=== PATIENT | male | born 1980 | race Caucasian/White ===

== ENCOUNTER 2017-05-24 21:23 | Inpatient (IN) ==
--- NOTE | 2017-05-24 22:04 | Emergency Department Note ---
Disposition Clinical Impression: Upper GI bleed Acute alcohol intoxication Qualifiers: Complication of substance-induced condition: uncomplicated Qualified Code(s): F10.929 - Alcohol use, unspecified with intoxication, unspecified Disposition: Admitted As Inpatient Condition: Good Time of Disposition: 22:12 General Adult HPI - General Chief complaint: ED Nausea/Vomiting/Diarrhea Stated complaint: vomiting blood Time Seen by Provider: 05/24/17 21:24 Source: patient, EMS Limitations: no limitations Nursing Notes Reviewed: Yes Vital Signs Reviewed: Yes - History of Present Illness HPI Narrative: 37-year-old male presenting to the emergency department with chief complaint of bloody emesis. Patient was transferred from the OR after disclosing a 4 day history of eye emesis 3 per day. Patient's hemoglobin stable. Patient has a history of alcoholic gastritis. Patient actively drinking daily. Alcohol level at OR was 351. CT of the abdomen and pelvis was completed at the OR as well which was within normal limits. Patient states he has diffuse abdominal tenderness but denies any other symptoms or complaints at this time. CBC completed at the OR white blood cell count 4.4, hemoglobin 15.4, hematocrit 42.3. CMP showed ethanol level of 351, AST 32, a LT 36, alkaline phosphatase 73 , calcium 8.2, creatinine 0.83, GFR greater than 60. Pain Scale: 9 - Related Data Home Medications Medication Instructions Recorded Confirmed Acamprosate Calcium 666 mg PO TID 05/24/17 05/24/17 Ergocalciferol (VITAMIN D2) 50,000 unit PO QWEEK 05/24/17 05/24/17 [Vitamin D2] Folic Acid 2 mg PO DAILY 05/24/17 05/24/17 Gabapentin [Neurontin] 300 mg PO HS 05/24/17 05/24/17 Mirtazapine [Remeron] 30 mg PO HS 05/24/17 05/24/17 Multivitamin [Multi-Day Vitamins] 1 each PO DAILY 05/24/17 05/24/17 Pantoprazole Sodium [Protonix] 20 mg PO BID 05/24/17 05/24/17 Potassium Chloride [K-Tab ER] 20 meq PO DAILY 05/24/17 05/24/17 Sertraline [Zoloft] 200 mg PO DAILY 05/24/17 05/24/17 Previous Rx's Medication Instructions Recorded Thiamine (B-1) [Vitamin B-1] 100 mg PO DAILY #30 tablet 09/16/15 Nicotine Patch [Nicoderm] 21 mg TD DAILY patch.td24 05/25/17 Allergies Allergy/AdvReac Type Severity Reaction Status Date / Time Sulfa (Sulfonamide Allergy Anaphylaxis Verified 09/09/16 21:11 Antibiotics) All systems ED: reviewed and negative except as stated. Constitutional: Denies: fever, chills, weakness Eyes: Reports: as per HPI ENT ED: Reports: as per HPI Cardiovascular: Denies: chest pain, palpitations, dyspnea on exertion Respiratory: Denies: cough, dyspnea, wheezes Gastrointestinal: Reports: abdominal pain, nausea, vomiting, hematemesis. Denies: diarrhea, constipation Genitourinary: Reports: as per HPI Musculoskeletal: Reports: as per HPI Integumentary: Reports: as per HPI Neurological: Reports: as per HPI Psychiatric: Reports: as per HPI Endocrine: Reports: as per HPI Hematological/Lymphatic: Reports: as per HPI Allergic/Immunologic: Reports: as per HPI Past Medical History - Past Medical History Attestation: Yes The following information was validated with the patient. Medical history: Reports: other Surgical history: Reports: orthopedic, other, other Psychiatric history: Reports: anxiety, depression, PTSD - Social History Smoking Status: Current every day smoker Smokeless Tobacco Status: Yes Alcohol use: Reports: heavy, recent Drug use: Reports: none Physical Exam - General Limitations: no limitations General appearance: alert, appears intoxicated - Head Head exam: atraumatic, normocephalic, normal inspection - Chest Chest inspection: Present: normal inspection, symmetric chest wall rise. Absent : tenderness - Respiratory Respiratory exam: Present: normal lung sounds bilaterally. Absent: respiratory distress, wheezes - Cardiovascular Cardiovascular exam: Present: regular rate, normal rhythm, normal heart sounds - Abdominal Exam Abdominal exam: Present: soft, tenderness. Absent: distention, guarding, rebound - Extremities Exam Extremities exam: Present: normal inspection, full ROM - Neurological Exam Neurological exam: Present: alert, oriented X3 - Skin Skin exam: Present: warm, intact Course Course Narrative: 37-year-old male presenting to emergency Department with chief complaint of bloody emesis for the past 4 days. Patient's hemoglobin stable at the OR. Alcohol level elevated at 351. We will admit the patient for upper GI bleed. Spoke with Dr. Mckeon who agrees to see the patient in the morning. Signed the patient out to the hospitalist Dr. Henderson Vital Signs Temperature 98.2 F 05/24/17 21:24 Pulse Rate 88 05/24/17 21:24 Respiratory Rate 18 05/24/17 21:24 Blood Pressure 140/100 05/24/17 21:24 O2 Sat by Pulse Oximetry 95 05/24/17 21:24 Temperature 98.8 F 05/25/17 14:51 Pulse Rate 91 05/25/17 14:51 Respiratory Rate 16 05/25/17 14:51 Blood Pressure 134/86 05/25/17 14:51 O2 Sat by Pulse Oximetry 95 05/25/17 14:51 Oxygen Delivery Oxygen Delivery Room Air Medical Decision Making - Lab Data Result diagrams: 05/25/17 11:28 05/25/17 05:34 Lab Results 05/24/17 05/24/17 Range/Units 22:09 22:09 Lipase 43 (8-78) Units/L Blood Type A POSITIVE Antibody Screen NEGATIVE Attestation Statement - Attestation Attestation: I, Jeovany Thomas, examined this patient and my medical decision-making was reviewed with the MEDICAL ASSISTANT FLOAT/PA/Advanced Practice Nurse/Resident Physician. I agree with the documented findings, disposition and treatment plan as described except to the extent set forth below. 37-year-old male presents to the emergency Department with concerns of hematemesis. He is being evaluated in the OR for EtOH abuse and behavioral health issues. They sent him to the emergency department for medical clearance secondary to a history of hematemesis and history of EtOH gastritis. Patient has tenderness to palpation of the epigastrium. His EtOH level was 351 at 3: 00. His lipase level was 370 with an upper limit of normal at the OR at 3 of 320. Hemoglobin is 15.4 and hematocrit 42. Patient states he continues to drink daily. CT of the abdomen and pelvis was negative for acute surgical pathology. Patient will be admitted to the hospital for further care and evaluation of his epigastric pain and hematemesis.
[2017-05-24] MEDS ORDERED: Naloxone 0.4 MG/ML INJ IVP PRN (22:45)
[2017-05-24] MEDS ORDERED: 0.9 % Sodium Chloride 1,000 ML IVC SCH (22:45)
[2017-05-24] MEDS ORDERED: *HR* LORazepam 2 MG/ML VIAL IVP PRN ×3 (22:49)
[2017-05-24] MEDS ORDERED: Mirtazapine 15 MG TABLET PO SCH (23:00)
[2017-05-24] MEDS ORDERED: Gabapentin 300 MG CAPSULE PO SCH (23:00)
--- NOTE | 2017-05-24 23:04 | Internal Med History&Physical ---
<Melissa Cannon M - Last Filed: 05/24/17 23:15> Date of Encounter: 05/24/17 Time of Encounter: 23:02 Assessment and Plan (1) Upper GI bleed Current visit: Yes Status: Acute Patient presents with reports of vomiting blood several times a day for the past 2-3 days. He has a history of previous hospitalization for similar and on those occasions was found to have alcoholic gastritis. Today patient has left sided abdominal pain and tenderness. CT of abdomen and pelvis at the [facility] showed no definitive evidence of pancreatitis, gastritis or duodenitis, and incidentally noted hepatomegaly Dr. Klein was consulted and plans EGD tomorrow. NPO Protonix IVP BID CHeck H/H Q6hr (2) Alcohol withdrawal Current visit: Yes Status: Acute Patient drinks 1L of vodka daily. Serum ETOH today of 351. He is here with hematemasis and abdominal pain. [facility] protocol seizure precautions multivitamin hydration social work consult Qualifiers: Complication of substance-induced condition: uncomplicated Qualified Code(s ): F10.230 - Alcohol dependence with withdrawal, uncomplicated (3) PTSD (post-traumatic stress disorder) Current visit: Yes Status: Acute Continue home medications. (4) Smoking Current visit: Yes Status: Chronic smoking cessation education and nicotine patch ordered. (5) DVT prophylaxis Current visit: Yes Status: Acute sequential compression devices pharmacologic prophylaxis is contraindicated in GI bleed. Internal Medicine - H&P: HPI Chief complaint: vomiting blood Admitted From: Emergency Dept History of present illness: Mr. Montanez is a 37 year old male with anxiety, depression, PTSD, and alcoholism was sent to the ED from the [facility] with reports of vomiting blood. Patient reports he has been vomiting blood 2-3 times a day for the last 3 days. He reports it is bright red and all blood. He also reports abdominal pain and tenderness. He reports he drinks 1 liter of vodka daily. He denies any diarrhea , black or bloody stools. He denies any lightheadedness, chest pain, shortness of breath, palpitations. Evaluation at the [facility] revealed serum alcohol level of 351. Hgb was 15.4 and Hct was 42.3. Urine drug screen was negative. Lipase was 370, but recheck here was 43. CT of the abdomen and pelvis showed no devinitive evidence of pancreatitis, gastritis or duodenitis and incidentally noted hepatomegaly. On exam, patient appears intoxicated, he is alert and oriented, and in no distress. Lungs are clear bilaterally and heart has regular rate and rhythm. Abdomen is diffusely tender to palpation, more so on the left than right. Past Med Surg Social Fam HX - Past Medical History Medical history: other Psychiatric history: anxiety, depression, PTSD - Past Surgical History Surgical History: orthopedic, other, other - Social History Smoking Status: Current every day smoker Smokeless Tobacco Status: Yes Alcohol use: heavy, recent Drug use: none - Family History Mother Adopted: No Family Member Ethnicity: Non- Living Status: Still Living Internal Medicine - H&P: Meds Thiamine (B-1) [Vitamin B-1] 100 mg PO DAILY #30 tablet 09/16/15 [Rx] Acamprosate Calcium 666 mg PO TID 05/24/17 [History] Diclofenac Sodium [Voltaren] 4 gm TP BID PRN 05/24/17 [History] Ergocalciferol (VITAMIN D2) [Vitamin D2] 50,000 unit PO QWEEK 05/24/17 [History] Folic Acid 2 mg PO DAILY 05/24/17 [History] Gabapentin [Neurontin] 300 mg PO HS 05/24/17 [History] Mirtazapine [Remeron] 30 mg PO HS 05/24/17 [History] Multivitamin [Multi-Day Vitamins] 1 each PO DAILY 05/24/17 [History] Pantoprazole Sodium [Protonix] 20 mg PO BID 05/24/17 [History] Potassium Chloride [K-Tab ER] 20 meq PO DAILY 05/24/17 [History] Sertraline [Zoloft] 200 mg PO DAILY 05/24/17 [History] 3 Allergy/AdvReac Type Severity Reaction Status Date / Time Sulfa (Sulfonamide Allergy Anaphylaxis Verified 09/09/16 21:11 Antibiotics) All Systems PM: A 10-system review of systems was performed and is negative for pertinent findings except as documented above in the HPI. - Constitutional Constitutional: anorexia, no chills, no fever(s), no night sweats - EENT Eyes: no change in vision, no discharge, no pain, no photophobia Ears: no ear discharge, no ear pain, no tinnitus Nose, mouth and throat: no dysphagia, no nasal discharge, no neck pain, no sore throat - Cardiovascular Cardiovascular ROS IM: no chest pain, no diaphoresis, no dyspnea, no lightheadedness, no palpitations, no syncope - Respiratory Respiratory: no cough, no dyspnea, no wheezing, no excessive phlegm production - Gastrointestinal Gastrointestinal: abdominal pain, hematemesis, nausea, vomiting, no diarrhea, no hematochezia, no melena - Musculoskeletal Musculoskeletal ROS IM: no numbness, no tingling - Integumentary Integumentary IM: no rash, no unusual bruising - Neurological Neurological ROS: no confusion, no convulsions, no focal weakness, no numbness, no tingling, no tremor(s) - Hematologic/Lymphatic Hematologic/Lymphatic: no easy bruising - Constitutional Vitals: Temp Pulse Resp BP Pulse Ox 98.2 F 88 18 140/100 97 05/24/17 21:24 05/24/17 21:24 05/24/17 21:24 05/24/17 21:24 05/24/17 21:34 General appearance: Present: A&O X 3, pleasant, no acute distress - Head Head exam: Present: atraumatic, normocephalic - Eye Eye exam: Present: conjuntiva pink, sclera anicteric Additional comments: pupils are round and reactive to light and accomodation, however left pupil greater in size than right. - Neck Neck exam general surgery: Present: supple, trachea midline. Absent: lymphadenopathy - Respiratory Respiratory exam: Present: CTAB. Absent: accessory muscle use, rales, rhonchi, wheezes - Cardiovascular Cardiovascular exam: Present: RRR, +S1, +S2. Absent: diastolic murmur, gallop, rubs, systolic murmur - GI/Abdominal GI/Abdominal exam: Present: normal bowel sounds, soft, tenderness (diffusely tender, moreso on left than right.), no peritoneal signs. Absent: distended - Extremities Exam Extremities exam: Present: warm, radial pulses palpable and symmetrical. Absent : calf tenderness, cyanotic, pedal edema - Neurological Exam Neurological exam: Present: CN II-XII intact, oriented X3, no focal deficits. Absent: pronater drift, facial droop, speech deficit - Skin Skin exam: Present: dry, intact Internal Med - H&P Results - Labs CBC & Chem 7: 05/24/17 23:04 <Thallapaneni,Rambabu - Last Filed: 05/25/17 03:50> Date of Encounter: 05/25/17 Internal Medicine - H&P: HPI History of present illness: Mr. Montanez is a 37 year old male All Systems PM: A 10-system review of systems was performed and is negative for pertinent findings except as documented above in the HPI. - Constitutional Vitals: Temp Pulse Resp BP Pulse Ox 98.4 F 73 18 158/87 95 05/25/17 00:10 05/25/17 00:10 05/25/17 00:10 05/25/17 00:10 05/25/17 00:10 Internal Med - H&P Results - Labs CBC & Chem 7: 05/24/17 23:04 05/24/17 23:04 Labs: Short CBC 05/24/17 Range/Units 23:04 WBC 4.1 L (4.3-11.1) K/mcL Hgb 13.8 (12.9-16.9) g/dL Hct 39.3 (37.5-50.1) % Plt Count 128 L (140-400) K/mcL Neutrophils # 1.4 L (1.6-8.9) K/mcL BMP 05/24/17 23:04 Sodium 142 Potassium 3.7 Chloride 103 Carbon Dioxide 25 BUN 6 L Creatinine 0.74 Glucose 86 Calcium 8.8 Liver Function 05/24/17 Range/Units 23:04 Total Bilirubin 0.8 (0.2-1.2) mg/dL AST 31 (5-34) Units/L ALT 22 (0-55) Units/L Alkaline Phosphatase 65 (38-126) Units/L Albumin 4.1 (3.5-5.0) g/dL - Attending Attestation I have personally performed a face to face evaluation on this patient and I discussed the assessment and plan with the nurse practitioner. I have reviewed and agree with the documented care plan. History and Exam by me shows: Mr. Montanez is a 37 year old male with anxiety, depression, PTSD, and alcoholism was sent to the ED from the [facility] with reports of vomiting blood. Patient reports he has been vomiting blood 2-3 times a day for the last 3 days. He reports it is bright red and all blood. He also reports abdominal pain and tenderness. He reports he drinks 1 liter of vodka daily. He denies any diarrhea , black or bloody stools. He denies any lightheadedness, chest pain, shortness of breath, palpitations. Evaluation at the [facility] revealed serum alcohol level of 351. Hgb was 15.4 and Hct was 42.3. Urine drug screen was negative. Lipase was 370, but recheck here was 43. CT of the abdomen and pelvis showed no devinitive evidence of pancreatitis, gastritis or duodenitis and incidentally noted hepatomegaly. On exam, patient appears intoxicated, he is alert and oriented, and in no distress Gen: A, A, O x3 Chest: CTA, No wheezing no crackles Heart : S1 S2 + RRR No murmurs Abd: Soft, moderate discomfort in RUQ and prei umbelical region a/p 1. Acute upper GI bleed NPO PPI IV BID GI consulted 2. Acute alcohol intoxication on [facility] protocol counseled to quit
[2017-05-24 23:11] LABS: Basophils % 0.5 %; Hematocrit 39.3 % (37.5-50.1); Hemoglobin 13.8 g/dL (12.9-16.9); Lymphocytes # 2.4 K/mcL (0.6-4.6); Lymphocytes % 57.2 %; Mean Corpuscular HGB Conc 35.1 g/dL (31.6-35.5); Mean Corpuscular Hemoglobin 34.9 pg (28.0-33.3); Mean Corpuscular Volume 99.5 fL (83.0-100.0); Mean Platelet Volume 11.1 fL (9.4-12.4); Monocytes # 0.3 K/mcL (0.0-1.3); Monocytes % 8.2 %; Neutrophils # 1.4 K/mcL (1.6-8.9); Platelet Count 128 K/mcL (140-400); Red Blood Count 3.95 M/mcL (4.19-5.50); Red Cell Distribution Width 12.4 % (11.5-14.5); Segmented Neutrophils % 33.1 %
[2017-05-24 23:27] LABS: Alanine Aminotransferase 22 Units/L (0-55); Albumin 4.1 g/dL (3.5-5.0); Albumin/Globulin Ratio 1.5 (1.1-2.2); Alkaline Phosphatase 65 Units/L (38-126); Aspartate Amino Transferase 31 Units/L (5-34); BUN/Creatinine Ratio 8 (6-26); Bilirubin,Total 0.8 mg/dL (0.2-1.2); Blood Urea Nitrogen 6 mg/dL (8-26); Calcium 8.8 mg/dL (8.6-10.8); Carbon Dioxide 25 mEq/L (19-29); Chloride 103 mEq/L (98-109); Globulin 2.8 g/dL (2.4-3.5); Glucose 86 mg/dL (70-99); Osmolality,Calculated 291 (280-300); Potassium 3.7 mEq/L (3.5-4.5); Sodium 142 mEq/L (136-145); Total Protein 6.9 g/dL (6.0-8.3); eGFR For African Americans > 60 (> 60); eGFR For Non-African Americans > 60 (> 60)
[2017-05-25] MEDS ORDERED: Thiamine (B-1) 100 MG, Folic Acid 1 MG, MVI, adult with vitamin K 10 ML in 0.9 % Sodi... IVPB SCH ×2 (01:00→18:00)
[2017-05-25] MEDS ORDERED: *HR* Morphine 2 MG/ML SYRINGE IVP PRN (01:11)
[2017-05-25] MEDS: Nicotine 21 MG PATCH.TD24 TD SCH ×2 (01:19→09:04)
[2017-05-25] MEDS: Ondansetron 4 MG/2 ML VIAL IVP PRN ×2 (01:20→12:06)
[2017-05-25 05:55] LABS: Basophils % 0.8 %; Eosinophils # 0.1 K/mcL (0.0-0.6); Eosinophils % 1.8 %; Hemoglobin 13.6 g/dL (12.9-16.9); Immature Granulocytes % 0.3 % (0-4); Lymphocytes # 1.9 K/mcL (0.6-4.6); Lymphocytes % 48.2 %; Mean Corpuscular HGB Conc 34.9 g/dL (31.6-35.5); Mean Corpuscular Hemoglobin 35.1 pg (28.0-33.3); Mean Corpuscular Volume 100.8 fL (83.0-100.0); Mean Platelet Volume 10.1 fL (9.4-12.4); Monocytes # 0.3 K/mcL (0.0-1.3); Neutrophils # 1.6 K/mcL (1.6-8.9); Platelet Count 130 K/mcL (140-400); Red Blood Count 3.87 M/mcL (4.19-5.50); Red Cell Distribution Width 12.4 % (11.5-14.5); Segmented Neutrophils % 40.9 %
[2017-05-25 06:01] LABS: Prothrombin Time 10.7 Seconds (9.4-12.1)
[2017-05-25 06:03] LABS: Activated Partial Thrombo Time 30.8 Seconds (26.0-36.0)
[2017-05-25 06:04] LABS: BUN/Creatinine Ratio 10 (6-26); Blood Urea Nitrogen 7 mg/dL (8-26); Calcium 8.7 mg/dL (8.6-10.8); Carbon Dioxide 25 mEq/L (19-29); Chloride 104 mEq/L (98-109); Glucose 79 mg/dL (70-99); Osmolality,Calculated 291 (280-300); Potassium 3.3 mEq/L (3.5-4.5); Sodium 142 mEq/L (136-145); eGFR For African Americans > 60 (> 60); eGFR For Non-African Americans > 60 (> 60)
[2017-05-25] MEDS ORDERED: 0.9 % Sodium Chloride 1,000 ML IVC SCH (07:00)
--- NOTE | 2017-05-25 08:35 | Internal Med Progress Note ---
Date of Encounter: 05/25/17 Time of Encounter: 08:34 - Assessment and plan (1) PTSD (post-traumatic stress disorder) Current Visit: Yes Status: Acute (2) Smoking Current Visit: Yes Status: Chronic (3) Gastritis determined by endoscopy Current Visit: No Status: Acute (4) Upper GI bleed Current Visit: Yes Status: Acute (5) Acute alcohol intoxication Current Visit: Yes Status: Acute Qualifiers: Complication of substance-induced condition: uncomplicated Qualified Code(s ): F10.929 - Alcohol use, unspecified with intoxication, unspecified (6) DVT prophylaxis Current Visit: Yes Status: Acute - Constitutional Vitals: Temp Pulse Resp BP Pulse Ox 97.8 F 87 16 126/83 95 05/25/17 06:49 05/25/17 06:49 05/25/17 06:49 05/25/17 06:49 05/25/17 06:49 General appearance: Present: A&O X 3, pleasant, no acute distress Internal Medicine: Result - Labs CBC & Chem 7: 05/25/17 05:34 05/25/17 05:34 Labs: Short CBC 05/24/17 05/25/17 Range/Units 23:04 05:34 WBC 4.1 L 4.0 L (4.3-11.1) K/mcL Hgb 13.8 13.6 (12.9-16.9) g/dL Hct 39.3 39.0 (37.5-50.1) % Plt Count 128 L 130 L (140-400) K/mcL Neutrophils # 1.4 L 1.6 (1.6-8.9) K/mcL BMP 05/24/17 05/25/17 23:04 05:34 Sodium 142 142 Potassium 3.7 3.3 L Chloride 103 104 Carbon Dioxide 25 25 BUN 6 L 7 L Creatinine 0.74 0.69 L Glucose 86 79 Calcium 8.8 8.7 Liver Function 05/24/17 Range/Units 23:04 Total Bilirubin 0.8 (0.2-1.2) mg/dL AST 31 (5-34) Units/L ALT 22 (0-55) Units/L Alkaline Phosphatase 65 (38-126) Units/L Albumin 4.1 (3.5-5.0) g/dL - ABG Interpretation ABG results: PT/INR, D-dimer PT 10.7 Seconds (9.4-12.1) 05/25/17 05:34 - VTE Documentation of Mechanical Device: Intermittent pneumatic compression device Consult Discharge Plan - Plan [facility]errals: [facility] [Primary Care Provider[facility] -
[2017-05-25] MEDS ORDERED: Folic Acid 1 MG TABLET PO SCH (09:00)
[2017-05-25] MEDS ORDERED: Thiamine (B-1) 100 MG TABLET PO SCH (09:00)
[2017-05-25] MEDS ORDERED: Potassium Chloride 40 MEQ, Lidocaine 1% 2 ML in D5% in Water 500 ML IVPB ONE (09:57)
--- NOTE | 2017-05-25 10:37 | Gastroenterology Consult Note ---
<Randi Jarrett - Last Filed: 05/25/17 13:12> Date of Encounter: 05/25/17 Time of Encounter: 10:00 - Assessment and plan (1) Hematemesis/vomiting blood Current Visit: Yes Status: Acute Assessment and plan: Pt presents after vomiting bright red blood. He drinks 1 L of vodka daily. He has a history of PUD. Hematemesis may be related to alcoholic gastritis, however he needs EGD to rule out PUD with bleeding or Rashida Chavez tear. Qualifiers: Nausea presence: with nausea Qualified Code(s): K92.0 - Hematemesis - Time Spent With Patient Total time spent is greater than 50% in coordination of care (as documented) at patient's floor/unit and/or counseling patient: GI History of Present Illness - Data of Consult Patient: new to practice Consult date: 05/25/17 Requesting Physician: Germán Whatley MD - Consult Narrative Reason for consult: hematemesis History of present illness: Mr. Montanez is a 37 year old male who presented with complaints of hematemesis from the [facility] clinic. He has a past medical history of anxiety depression and PTSD and alcoholism. He does admit to drinking 1 L of vodka daily. Alcohol level at the [facility] was 351 and the patient appeared intoxicated in the ER. He denies any IVDU or liver disease. CT of the abdomen and pelvis at the [facility] showed no definitive evidence of pancreatitis, gastritis or duodenitis and incidentally noted hepatomegaly. Labs showed a white count of 4.0, hemoglobin 13.6, platelet count 130, potassium 3.3, BUN of 7, creatinine 0.69, INR 1.0. LFTs were normal, albumin was slightly low. Home medications include diclofenac and Protonix. The patient reports vomiting blood 2-3 times a day for the past 3 days and described as bright red. He is also complaining of abdominal pain and tenderness. He denies any diarrhea, or black or bloody stools. Colonoscopy: 2 years ago at [facility], polyps EGD: 2 years ago [facility], ulcers NSAIDS: diclofenac ASA: denies Anticougulants: denies Past Med Surg Social Fam HX - Past Medical History Medical history: other Psychiatric history: anxiety, depression, PTSD - Past Surgical History Surgical History: orthopedic, other, other - Social History Smoking Status: Current every day smoker Packs per day: 1 Smokeless Tobacco Status: Yes Alcohol use: heavy, recent Drug use: none - Family History Mother Adopted: No Family Member Ethnicity: Non- Living Status: Still Living Review of Systems: GI: as per [facility] GENERAL: denies fever or chills EYES: denies yellow discoloration ENT: denies pain with swallowing or difficulty swallowing CARDIO: denies chest pain, palpitations RESP: No Shortness of breath with exertion : denies change in color of urine NEURO: denies any weakness HEME: Denies any bruising MS: chronic joint pain, and back pain. DERM: denies rash or itching PSYCH: history of PTSD, anxiety and depression - Constitutional Vitals: Temp Pulse Resp BP Pulse Ox 98.1 F 82 16 136/91 94 05/25/17 10:18 05/25/17 10:18 05/25/17 10:18 05/25/17 10:18 05/25/17 10:18 Exam: CONSTITUTIONAL:~alert, no acute distress.~HEAD:~normocephalic.~EYES:~no jaundice.~NECK:~no obvious swelling.~HEART:~regular rate and rhythm, no murmurs. ~LUNGS:~fair expiratory wheezes bilaterally, ~ABDOMEN:~non distended, soft, diffusely tender to all quadrants, no masses pulpable, no organomegaly.~RECTAL EXAM:~Deferred.~EXTREMITIES:~no clubbing, cyanosis or edema.~SKIN:~no stigmata of chronic liver disease.~NEUROLOGIC:~no obvious focal defect.~~~~ Results - Labs CBC & Chem 7: 05/25/17 11:28 05/25/17 05:34 Labs: Last Result Calcium 8.7 mg/dL (8.6-10.8) 05/25/17 05:34 Entire Visit Hgb 13.6 g/dL (12.9-16.9) 05/25/17 05:34 Hct 39.0 % (37.5-50.1) 05/25/17 05:34 PT 10.7 Seconds (9.4-12.1) 05/25/17 05:34 Total Bilirubin 0.8 mg/dL (0.2-1.2) 05/24/17 23:04 AST 31 Units/L (5-34) 05/24/17 23:04 ALT 22 Units/L (0-55) 05/24/17 23:04 Lipase 43 Units/L (8-78) 05/24/17 22:09 - ABG ABG results: PT/INR, D-dimer PT 10.7 Seconds (9.4-12.1) 05/25/17 05:34 Consult Discharge Plan - Plan [facility]errals: [facility] [Primary Care Provider] - <Elly Klein - Last Filed: 05/25/17 13:14> Date of Encounter: 05/25/17 Time of Encounter: 12:30 - Time Spent With Patient Total time spent is greater than 50% in coordination of care (as documented) at patient's floor/unit and/or counseling patient: GI History of Present Illness - Data of Consult Requesting Physician: Germán Whatley MD - Consult Narrative History of present illness: Mr. Montanez is a 37 year old male - Constitutional Vitals: Temp Pulse Resp BP Pulse Ox 98.2 F 80 18 154/104 96 05/25/17 12:27 05/25/17 12:27 05/25/17 12:27 05/25/17 12:27 05/25/17 12:27 Results - Labs CBC & Chem 7: 05/25/17 11:28 05/25/17 05:34 Labs: Last Result Calcium 8.7 mg/dL (8.6-10.8) 05/25/17 05:34 Entire Visit Hgb 13.4 g/dL (12.9-16.9) 05/25/17 11:28 Hct 38.3 % (37.5-50.1) 05/25/17 11:28 PT 10.7 Seconds (9.4-12.1) 05/25/17 05:34 Total Bilirubin 0.8 mg/dL (0.2-1.2) 05/24/17 23:04 AST 31 Units/L (5-34) 05/24/17 23:04 ALT 22 Units/L (0-55) 05/24/17 23:04 Lipase 43 Units/L (8-78) 05/24/17 22:09 - ABG ABG results: PT/INR, D-dimer PT 10.7 Seconds (9.4-12.1) 05/25/17 05:34 - Attending Attestation I examined this patient and my medical decision-making was reviewed with the Resident Physician. I agree with the documented findings, disposition and treatment plan as described except to the extent set forth below.
[2017-05-25 11:40] LABS: Hematocrit 38.3 % (37.5-50.1); Hemoglobin 13.4 g/dL (12.9-16.9)
--- NOTE | 2017-05-25 12:27 | Anesthesia Evaluation PreOp ---
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: Other (PTSD) Other Medical History: Other (UGI bleed) Anesthesia History: No Prior Anesthetic Complications, Past Anesthesia (EGD, orthopedic) Alcohol Use: heavy (one fifth vodka daily), recent Drug use: none Medications and Allergies Thiamine (B-1) [Vitamin B-1] 100 mg PO DAILY #30 tablet 09/16/15 [Rx] Acamprosate Calcium 666 mg PO TID 05/24/17 [History] Diclofenac Sodium [Voltaren] 4 gm TP BID PRN 05/24/17 [History] Ergocalciferol (VITAMIN D2) [Vitamin D2] 50,000 unit PO QWEEK 05/24/17 [History] Folic Acid 2 mg PO DAILY 05/24/17 [History] Gabapentin [Neurontin] 300 mg PO HS 05/24/17 [History] Mirtazapine [Remeron] 30 mg PO HS 05/24/17 [History] Multivitamin [Multi-Day Vitamins] 1 each PO DAILY 05/24/17 [History] Pantoprazole Sodium [Protonix] 20 mg PO BID 05/24/17 [History] Potassium Chloride [K-Tab ER] 20 meq PO DAILY 05/24/17 [History] Sertraline [Zoloft] 200 mg PO DAILY 05/24/17 [History] 3 Allergy/AdvReac Type Severity Reaction Status Date / Time Sulfa (Sulfonamide Allergy Anaphylaxis Verified 09/09/16 21:11 Antibiotics) - Meds/Allergy Pre-op Review Medications Reviewed: Yes Allergies Reviewed: Yes Beta Blockers on Current Med List: No Anesthesia Results - Labs 05/25/17 11:28 05/25/17 05:34 Anesthesia Exam Selected Entries 05/25/17 10:18 Temperature 98.1 F Pulse Rate 82 Respiratory Rate 16 Blood Pressure 136/91 O2 Sat by Pulse Oximetry 94 Weight: 76kg NPO (# of Hours): >8 - HEENT Pupil (Motor): EOMI Mallampati: II Teeth: Poor dentition Oral Opening: Greater than 3 - VRT MECHANIC LOC: Oriented VRT MECHANIC Motor: Normal RUE, Normal LUE, Normal RLE, Normal LLE, Normal Face VRT MECHANIC Sensory: Normal: RUE, LUE, RLE, LLE, Face - Cardiac Rhythm: Regular Murmur: None - Pulmonary Breath Sounds: bilateral Clear Respiratory Effort: Symmetrical Anesthesia Assess/Plan ASA Score: 3 Modified Hamilton Scale for Level of Consciousness: Cooperative, oriented, and tranquil Anesthetic Plan: MAC Monitoring Plan: Standard Monitors Recovery Plan: Other (discussed MAC, agrees to proceed)
[2017-05-25] MEDS ORDERED: Tetracaine/Benzocaine/Butamben 200MG/SPRAY (100SPY/BOT) MM ONE (12:29)
--- NOTE | 2017-05-25 13:26 | Discharge Summary ---
Date of Encounter: 05/25/17 Time of Encounter: 09:00 - Discharge Diagnosis (1) Acute alcohol intoxication Priority: Primary Status: Acute Qualifiers: Complication of substance-induced condition: uncomplicated Qualified Code(s ): F10.929 - Alcohol use, unspecified with intoxication, unspecified (2) PTSD (post-traumatic stress disorder) Priority: Secondary Status: Chronic (3) Smoking Priority: Secondary Status: Chronic (4) Gastritis determined by endoscopy Priority: Primary Status: Chronic (5) Upper GI bleed Priority: Primary Status: Ruled-out (6) DVT prophylaxis Priority: Primary Status: Chronic - Discharge Medications Home Medications: Thiamine (B-1) [Vitamin B-1] 100 mg PO DAILY #30 tablet 09/16/15 [Rx] Acamprosate Calcium 666 mg PO TID 05/24/17 [History] Ergocalciferol (VITAMIN D2) [Vitamin D2] 50,000 unit PO QWEEK 05/24/17 [History] Folic Acid 2 mg PO DAILY 05/24/17 [History] Gabapentin [Neurontin] 300 mg PO HS 05/24/17 [History] Mirtazapine [Remeron] 30 mg PO HS 05/24/17 [History] Multivitamin [Multi-Day Vitamins] 1 each PO DAILY 05/24/17 [History] Pantoprazole Sodium [Protonix] 20 mg PO BID 05/24/17 [History] Potassium Chloride [K-Tab ER] 20 meq PO DAILY 05/24/17 [History] Sertraline [Zoloft] 200 mg PO DAILY 05/24/17 [History] Nicotine Patch [Nicoderm] 21 mg TD DAILY patch.[id number] 05/25/17 [Rx] Allergies/Adverse Reactions: 3 Allergy/AdvReac Type Severity Reaction Status Date / Time Sulfa (Sulfonamide Allergy Anaphylaxis Verified 09/09/16 21:11 Antibiotics) Date of admission: 05/24/17 22:38 [facility] care physician: [facility] Consults: 05/24/17 22:49 Consult to Machine Feed Operator [CONS] Routine Reason for SW Consult: alcohol withdrawal 05/24/17 22:50 Consult to Gastroenterology [CONS] Routine Consulting Provider: Gastroenterology Chanda Reason for Consult: 37M with alcoholism with reported bloody emesis Call Completed: Yes Discharging clinician: Germán Whatley Anticipated date of discharge: 05/25/17 - Patient Status Disposition: Home, Self-Care Condition: Good Functional capacity at discharge: independent ambulation Overall status at discharge: patient is back to baseline - Discharge Instructions Follow Up With: [facility],PCP [Primary Care Provider] - - Diet and Activity Activity: resume usual activities as tolerated Diet: regular diet Interval History: See below Hospital course: Mr. Montanez is a 37 year old male who presented with complaints of hematemesis from the [facility]. PMH is of Anxiety/Depression/PTSD and alcoholism. He does admit to drinking 1 L of vodka daily. Alcohol level at the [facility] was 351 and the patient appeared intoxicated in the ER. He denies any IVDU or liver disease. CT of the abdomen and pelvis at the [facility] showed no definitive evidence of pancreatitis, gastritis or duodenitis and incidentally noted hepatomegaly. Labs showed a white count of 4.0, hemoglobin 13.6, platelet count 130, potassium 3.3, BUN of 7, creatinine 0.69, INR 1.0. LFTs were normal, albumin was slightly low. Home medications include diclofenac and Protonix. The patient reported vomiting blood 2-3 times a day for the past 3 days and described as bright red. He is also complaining of abdominal pain and tenderness. He denies any diarrhea, or black or bloody stools. He has a known hx of PUD and has had GI work up in the past Colonoscopy: 2 years ago at [facility], polyps EGD: 2 years ago [facility], ulcers NSAIDS: diclofenac, topical ASA: denies Anticoagulants: denies He was seen and evaluated at bedside this morning, he denies new complains and is hemodynamically stable. His HB is 13. Except for hypokalemia, his labs were normal He was seen and evaluated by GI EGD done today 05/25/17 revealed esophagitis and gastritis with no GI bleed, biopsies were taken for pathology. He has no GI bleed He has been started on a regular diet and is safe to be discharged home if he tolerates his diet. He has no suicidal or homicidal ideation. He has no interest in tobacco or alcohol abuse cessation resume home meds, d/c topical diclofenac Follow up with PCP D/C Diclofenac, Avoid NSAIDs Time spent discussing smoking cessation with patient: 3 to 10 minutes - Time Spent with Patient Total time spent providing and/or coordinating discharge services: Less than 30 minutes - Constitutional Vitals: Temp Pulse Resp BP Pulse Ox 98.2 F 80 18 154/104 96 05/25/17 12:27 05/25/17 12:27 05/25/17 12:27 05/25/17 12:27 05/25/17 12:27 General appearance: Present: A&O X 3, pleasant, no acute distress - Head Head exam: Present: atraumatic, normocephalic - Eye Eye exam: Present: PERRL, conjuntiva pink, sclera anicteric Pupils: Present: PERRL - Neck Neck exam general surgery: Present: supple, trachea midline. Absent: lymphadenopathy - Respiratory Respiratory exam: Present: CTAB. Absent: accessory muscle use, rales, rhonchi, wheezes - Cardiovascular Cardiovascular exam: Present: RRR, +S1, +S2. Absent: diastolic murmur, gallop, rubs, systolic murmur - GI/Abdominal GI/Abdominal exam: Present: normal bowel sounds, soft, no peritoneal signs. Absent: distended, tenderness - Extremities Exam Extremities exam: Present: warm, radial pulses palpable and symmetrical. Absent : calf tenderness, cyanotic, pedal edema - Neurological Exam Neurological exam: Present: alert, CN II-XII intact, oriented X3, no focal deficits. Absent: pronater drift, facial droop, speech deficit - Skin Skin exam: Present: dry, intact - VTE Documentation of Mechanical Device: Intermittent pneumatic compression device
[2017-05-25 14:53] VITALS: BP 134/86
[2017-05-25] MEDS ORDERED: *HR* Propofol 500 MG/50 ML BOTTLE IVC ONE (16:09)
[2017-05-25] MEDS ORDERED: Pantoprazole 40 MG VIAL IVP SCH (22:45)
== END 2017-05-25 16:10 | disposition home or self-care (01) | DRG 392 ==
LOC: EMEROO 21:23 → 3NENU 21:23 → OBSVTOIN 22:38 → 3NENU 23:47
PROVIDERS: ADMIT Family Medicine; ATTEND Internal Medicine
PROC: ENDOEBX (2017-05-25 18:00)